=== PATIENT | female | born 1980 | race Caucasian/White ===

== ENCOUNTER 2023-12-15 09:48 | Outpatient (AMB) | payer OTHER, SELFPAY ==
--- NOTE | 2023-12-15 10:10 | AM.OFFWIN_ITS ---
Intake Vital Signs 12/15/23 10:11 Weight 256 lb BP 120/82 Blood Pressure Location Rt brachial Position Sitting Pulse 78 Pulse Source Pulse Oximeter Pulse Oximetry (%) 98 Oxygen Delivery Method Room Air Intake Visit Reasons: EP ? kidney infection Intake Note: Patient here for lower back pain that wraps around to the side which has been going on for a couple of days. She denies any normal UTI sx but has pressure when urinating. Patient Tobacco Use Status: Former Tobacco user Allergies amoxicillin [From Augmentin] Allergy (Severe, Verified 12/15/23 10:19) Anaphylaxis clavulanic acid [From Augmentin] Allergy (Severe, Verified 12/15/23 10:19) Anaphylaxis Do you need a note to return to daycare/school/sports/work: No HPI HPI Comments History of Present Illness Details This is a 43-year-old female with no stated past medical history and surgical history of tubal ligation presenting for evaluation of right-sided low back pain that radiates to her right flank. Patient reports having suprapubic pressure when she urinates but denies having any dysuria, hematuria or urinary frequency. Additionally, patient denies having any fevers or chills but will occasionally feel diaphoretic. She denies any injury or trauma preceding the onset of her symptoms 2 days ago. [facility] Social History Patient Tobacco Use Status: Former Tobacco user Review of Systems Const All systems reviewed & are unremarkable except as noted in HPI and below Reports no additional complaints Eyes Reports no additional complaints ENT Reports no additional complaints Card Reports no additional complaints Resp Reports no additional complaints GI Reports no additional complaints Denies urinary frequency, Denies difficulty voiding, Denies dysuria, Denies pelvic pain, Reports flank pain (right flank) and Reports other (suprapubic pressure with urination) Musc Reports back pain (right low back) Skin/Breast Reports system reviewed and no additional complaints, except as documented Neuro Reports no additional complaints Psych Reports no additional complaints Physical Exam Vital Signs: Last Vital Signs Pulse 78 12/15/23 10:11 BP 120/82 12/15/23 10:11 Pulse Ox 98 12/15/23 10:11 Oxygen Delivery Method Room Air 12/15/23 10:11 Const General: cooperative, healthy appearing, comfortable, no acute distress, well developed, alert, awake and Physically active; No ill appearing Nutritional Appearance: overweight Orientation/consciousness: patient oriented x3 Limitations: no limitations GI Palpation (GI): Soft to palpation, nontender, no guarding and not rigid Auscultation: normal bowel sounds General: Yes Bimanual renal exam normal bilaterally, Yes bladder normal to palpation and Yes no CVA tenderness Bimanual exam- vagina & uterus: bladder normal to palpation Back/Spine/Pelvis Back: no CVA tenderness Thoracic/Lumbar Spine: thoracic and lumbar spine normal to inspection, straight leg raise negative bilaterally, paraspinal muscle tenderness (right lumbar tenderness) on the right, No thoracic spinal tenderness and No lumbar spinal tenderness Skin General skin exam: no rashes or lesions noted Neuro General: patient oriented x3 Psych Appearance: grossly normal Insight: Good insight present (Psych) Judgement: Good judgement present (Psych) Results AMB Urinalysis, Automated UA Leukoctes 0 Anthony/uL Last Edit by Von Nguyen [facility] on 12/15/23 10:55 UA Nitrite Negative Last Edit by Von Nguyen [facility] on 12/15/23 10:55 UA Urobilinogen 0.2 mg/dL Last Edit by Von Nguyen [facility] on 12/15/23 10:55 UA Protein 15 mg/dL Last Edit by Von Nguyen [facility] on 12/15/23 10:55 UA pH 6.0 Last Edit by AngeQuin Nguyen [facility] on 12/15/23 10:55 UA Blood 200 Jah/uL Last Edit by Von Nguyen [facility] on 12/15/23 10:55 UA Specific [place] 1.010 Last Edit by Von Nguyen [facility] on 12/15/23 10:55 UA Ketone Positive Last Edit by Von Nguyen [facility] on 12/15/23 10:55 UA Bilirubin 0 mg/dL Last Edit by Von Nguyen [facility] on 12/15/23 10:55 UA Glucose 0 mg/dL Last Edit by AngeQuin Nguyen [facility] on 12/15/23 10:55 Results Reviewed Results Reviewed: Urinalysis is negative for leukocytes and nitrates however notes 3+ blood; patient's LMP September 2023 - tubal ligation last month. Assessment & Plan Assessment & Plan (1) Right lumbar pain: Comment: Patient does not have suprapubic tenderness or CVA tenderness. Patient's symptoms will be treated as a muscular strain. Code(s): M54.50 - Low back pain, unspecified Plan: Naprosyn and Robaxin as prescribed; the natural history of nephrolithiasis is discussed with the patient she will go to the emergency department for any significant worsening of her symptoms. Orders: Orders AMB Urinalysis Automated Today Z13.9 - Encounter for screening, unspecified Medications: New methocarbamol 750 mg PO Q8H 20 tabs 0RF naproxen (Naprosyn) 500 mg PO BID 20 tabs 0RF Coding Level of Care Code Est Pt Level 3 (41241) Diagnoses Right lumbar pain M54.50 Time Spent (min) 25
[2023-12-15 10:11] VITALS: BP 120/82; PULSE 78; O2SAT 98
== END 2023-12-15 10:46 | disposition home or self-care (01) ==
PROVIDERS: Visit Provider Physician Assistant
DX: Z13.9 Encounter for screening, unspecified (principal); M54.50 Low back pain, unspecified

== ENCOUNTER → 2023-12-15 09:48 | Outpatient (BNVA) | payer OTHER, SELFPAY | DX: M54.50 Low back pain, unspecified (principal) | CPT/HCPCS: 81003 ==

== ENCOUNTER 2024-07-29 11:52 | Outpatient (AMB) | payer OTHER, SELFPAY ==
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
[2024-07-29 12:04] VITALS: BP 126/90; PULSE 68; O2SAT 98
== END 2024-07-29 13:15 | disposition home or self-care (01) ==
PROVIDERS: Visit Provider Nurse Practitioner Family
DX: S00.03XA Contusion of scalp, initial encounter (principal); V89.2XXA Person injured in unspecified motor-vehicle accident, traffic, initial encounter; M79.631 Pain in right forearm; Z04.3 Encounter for examination and observation following other accident

== ENCOUNTER → 2024-07-29 11:52 | Outpatient (BNVA) | payer OTHER, SELFPAY | PROVIDERS: Visit Provider Nurse Practitioner Family | DX: Z13.89 Encounter for screening for other disorder (principal) ==

== ENCOUNTER 2024-10-09 07:37 | Outpatient (AMB) | payer OTHER, SELFPAY ==
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
[2024-10-09 07:46] VITALS: BP 134/78; PULSE 84; TEMP 36.9; O2SAT 99; BMI 45.3
== END 2024-10-09 08:27 | disposition home or self-care (01) ==
PROVIDERS: Visit Provider Physician Assistant
DX: H60.311 Diffuse otitis externa, right ear (principal); M62.830 Muscle spasm of back